=== PATIENT | female | born 1980 | race African-American/Black ===

== ENCOUNTER 2019-07-19 17:07 | Emergency (ER) | payer OTHER ==
[~2019-07-19] VITALS: Ht 175.3 cm; Wt 83.9 kg
[~2019-07-19 17:07] MED LIST: HYDROCODON-ACE1 EA15 ORAL; OMEPRAZOLE20 M2 ORAL
[2019-07-19 17:26] VITALS: BP 146/93
[2019-07-19] MEDS ORDERED: Ketorolac 30mg Inj IV ONE (18:00)
[2019-07-19] MEDS ORDERED: Clindamycin 600mg 50 ML IVPB ONE (18:00)
--- NOTE | 2019-07-19 18:00 | Emergency Room Report ---
History of Present Illness General Chief Complaint: Skin Rash/Abscess Source: Patient Present Illness HPI 38-year-old female presents to the emergency department complaining of 7 out of 10 severity localized pain, swelling, erythema and purulent discharge to the dorsal aspect of the right index finger x4 days. Patient reports symptoms are progressive and began as an insect bite which look like a small pimple. Trauma or fall. Patient denies history of immune compromise. She reports pain exacerbation upon flexion or full extension of the right index finger. Patient states that she is left-hand dominant. Pt. denies fevers, chills or swollen tender lymph nodes. Denies lesions/rashes elsewhere on the body. Denies new medications or body washes or creams. Denies swelling of the lips, tongue , throat or airway. Denies wheezing, or shortness of breath. Denies recent travel , recent illness or ill contacts. denies blisters, oral lesions, or sloughing of the skin. Pt. not UTD with tetanus. Allergies: Coded Allergies: No Known Allergies (Unverified , 03/21/15) Patient History Past Medical History: see triage record Pertinent Family History: none Last Menstrual Period: 07/17/19 Now: No Reviewed Nursing Documentation: PMH: Agreed; PSxH: Agreed Nursing Documentation-PMH Past Medical History: No Stated History Review of Systems All Other Systems: negative except mentioned in HPI Physical Exam Vital Signs Date Time Temp Pulse Resp B/P (MAP) Pulse Ox O2 Delivery O2 Flow Rate FiO2 07/19/19 17:11 98.1 80 14 146/93 (110) 95 Room Air Sp02 EP Interpretation: reviewed, normal General Appearance: no apparent distress, alert, GCS 15, non-toxic Head: normocephalic, atraumatic Eyes: bilateral eye normal inspection, bilateral eye PERRL ENT: hearing grossly normal, normal voice Neck: full range of motion Respiratory: lungs clear, normal breath sounds, speaking full sentences Cardiovascular #1: regular rate, rhythm, normal capillary refill Musculoskeletal: normal range of motion, gait/station normal, tender - Dorsal aspect of the right index finger with moderate swelling, erythema, warmth and purulent discharge noted., swelling - dorsum of the right index finger Neurologic: alert, motor strength/tone normal, oriented x3, sensory intact, responsive, speech normal Psychiatric: judgement/insight normal Skin: other - draining pustule with surrounding ST infectin of the dorsal aspect of the right index finger with moderate swelling, erythema, warmth and purulent discharge noted.. No blisters or vesicles. Lymphatic: no adenopathy Medical Decision Making PA Attestation Dr. Avila Is my supervising Physician whom patient management has been discussed with. Diagnostic Impression: Primary Impression: Cellulitis of finger of right hand ER Course 38-year-old female presents to the emergency department complaining of 7 out of 10 severity localized pain, swelling, erythema and purulent discharge to the dorsal aspect of the right index finger x4 days. Patient reports symptoms are progressive and began as an insect bite which look like a small pimple. Trauma or fall. Patient denies history of immune compromise. She reports pain exacerbation upon flexion or full extension of the right index finger. Patient states that she is left-hand dominant. Pt. denies fevers, chills or swollen tender lymph nodes. Denies lesions/rashes elsewhere on the body. Denies new medications or body washes or creams. Denies swelling of the lips, tongue , throat or airway. Denies wheezing, or shortness of breath. Denies recent travel , recent illness or ill contacts. denies blisters, oral lesions, or sloughing of the skin. Pt. not UTD with tetanus. Ddx considered but are not limited to cellulitis, Necrotizing fasciitis, allergic reaction, burn, dermatitis, fracture, d/L, gout, paronichia, eponichia, ingrown toe nail, Vital signs: are WNL, pt. is afebrile H&PE are most consistent with moderate soft tissue cellulitis of the proximal aspect of the right index finger on the dorsal side. Patient is able to flex and extend index finger on her own with some discomfort. She is nontoxic in appearance in no acute distress at this time. ORDERS: none required at this time, the diagnosis is clinical ED INTERVENTIONS: Clindamycin IV -Toradol IV -Right index finger splint applied by pulmonary function technologist. Pt. remains neurovascularly intact. Patient is given strict ED return precautions and told to have 48-hour wound follow-up to ensure improvement of symptoms. DISCHARGE: At this time pt. is stable for d/c to home. Will provide printed patient care instructions, and any necessary prescriptions. Care plan and follow up instructions have been discussed with the patient prior to discharge. Last Vital Signs Date Time Temp Pulse Resp B/P (MAP) Pulse Ox O2 Delivery O2 Flow Rate FiO2 07/19/19 17:26 98.1 84 14 146/93 95 Room Air Status: improved Disposition: HOME, SELF-CARE Condition: Stable Scripts Mupirocin* (MUPIROCIN*) 22 Gm Oint...g. 1 APPLIC TOPIC THREE TIMES A DAY, #22 GM Prov: Shante Britt 07/19/19 Ibuprofen* (MOTRIN*) 600 Mg Tablet 600 MG ORAL THREE TIMES A DAY, #30 TAB 0 Refills Prov: Shante Britt 07/19/19 Acetaminophen With Codeine (T#3) (TYLENOL #3 TAB*) Y Tab 1 TAB ORAL Q6H PRN for For Pain, #12 TAB Prov: Shante Britt 07/19/19 Clindamycin Hcl (CLINDAMYCIN HCL) 300 Mg Capsule 300 MG ORAL FOUR TIMES A DAY for 7 Days, #28 CAP Prov: Shante Britt 07/19/19 Patient Instructions: Cellulitis, [id number] Additional Instructions: Take medications as directed. Follow up with a Primary Care Provider in 48 HOURS, even if your symptoms have resolved. --Please review list of primary care clinics, if you do not already have a primary care provider Return sooner to ED if new symptoms occur, or current symptoms become worse. Do not drink alcohol, drive, or operate heavy machinery while taking Tylenol # 3 as this may cause drowsiness. - Please note that this Emergency Department Report was dictated using [employer] program director technology software, occasionally this can lead to erroneous entry secondary to interpretation by the dictation equipment. Shante Britt Jul 19, 2019 18:00
[2019-07-19] MEDS ORDERED: Tylenol #3 tab (300mg/30mg) ORAL ONE (18:15)
[2019-07-19 18:35] LABS: BASOPHILS % (AUTO) 0.6 % (0.0-2.0); EOSINOPHILS % (AUTO) 1.3 % (0.0-3.0); HEMOGLOBIN 13.1 G/DL (12.0-16.0); LYMPHOCYTES % (AUTO) 28.8 % (20.0-45.0); MEAN CORPUSCULAR VOLUME 80 FL (80-99); NEUTROPHILS % (AUTO) 62.2 % (45.0-75.0); PLATELET COUNT 281 K/UL (150-450); RED BLOOD COUNT 5.13 M/UL (4.20-5.40); RED CELL DISTRIBUTION WIDTH 10.5 % (11.6-14.8); WHITE BLOOD COUNT 10.3 K/UL (4.8-10.8)
[2019-07-19] MEDS ORDERED: Tetanus/Diptheria/Pertussis IM ONE (19:15)
[2019-07-19] MEDS ORDERED: MUPIROCIN22 GM TOPIC (19:30)
[2019-07-19] MEDS ORDERED: ACETAMINOPHEN-1 EAC1 ORAL (19:30)
[2019-07-19] MEDS ORDERED: IBUPROFEN600 MG ORAL (19:30)
[2019-07-19] MEDS ORDERED: CLINDAMYCIN HC300 MG ORAL (19:30)
[2019-07-19 20:40] VITALS: BP 146/93
== END 2019-07-19 20:40 | disposition home or self-care (01) ==
LOC: EMR 17:50
DX: L03.011 Cellulitis of right finger (principal); W57.XXXA Bitten or stung by nonvenomous insect and other nonvenomous arthropods, initial encounter; Y93.9 Activity, unspecified; Y92.9 Unspecified place or not applicable
CPT/HCPCS: 29130; 36415; 85025; 90471; 90715; 96365; 96375; J1885; Z7502; 99284; S0077

== ENCOUNTER 2019-10-01 10:24 | Emergency (ER) | payer OTHER ==
[~2019-10-01] VITALS: Ht 172.7 cm; Wt 83.9 kg
[~2019-10-01 10:24] MED LIST changes: +ACETAMINOPHEN-1 EAC1 ORAL; +CLINDAMYCIN HC300 MG ORAL; +IBUPROFEN600 MG ORAL; +MUPIROCIN22 GM TOPIC
--- NOTE | 2019-10-01 10:32 | NUR ---
ED Nurse Note: Pt ambulated to ED d/t abdominal pain on RT upper region; N/V x 3 days. Pt is AOx4 calm and cooperative; VSS, on RA. Placed on bed.
--- NOTE | 2019-10-01 10:35 | NUR ---
ED Nurse Note: Dr. Avila at bedside.
[2019-10-01 10:37] VITALS: BP 120/81
[2019-10-01] MEDS ORDERED: FAMOTIDINE20 MG ORAL (10:46)
[2019-10-01] MEDS ORDERED: IBUPROFEN600 MG ORAL (10:46)
--- NOTE | 2019-10-01 10:47 | Emergency Room Report ---
History of Present Illness General Chief Complaint: Abdominal Pain Source: Patient Present Illness HPI 38-year-old female history of gallstones presents with right upper quadrant pain that started last night, after a meal, no alleviating factors aggravating factors appear to be eating, severity was moderate, constant sharp lasting a few hours self resolving, with nausea no chest pain or shortness of breath patient presents for evaluation Allergies: Coded Allergies: No Known Allergies (Unverified , 03/21/15) Patient History Past Medical History: see triage record Last Menstrual Period: 09/17/2019 Reviewed Nursing Documentation: PMH: Agreed; PSxH: Agreed Nursing Documentation-PMH Past Medical History: No Stated History Review of Systems All Other Systems: negative except mentioned in HPI Physical Exam Vital Signs Date Time Temp Pulse Resp B/P (MAP) Pulse Ox O2 Delivery O2 Flow Rate FiO2 10/01/19 10:27 98.1 75 16 120/81 (94) 97 Room Air Sp02 EP Interpretation: reviewed, normal General Appearance: well appearing, no apparent distress, alert Head: normocephalic, atraumatic Eyes: bilateral eye PERRL, bilateral eye EOMI ENT: uvula midline, moist mucus membranes Neck: supple, thyroid normal, supple/symm/no masses Respiratory: lungs clear, no respiratory distress, no retraction, no accessory muscle use Cardiovascular #1: normal peripheral pulses, regular rate, rhythm, no edema, no gallop, no murmur Gastrointestinal: non tender, soft, no guarding, no rebound Musculoskeletal: normal inspection Neurologic: alert, oriented x3 Psychiatric: mood/affect normal Skin: no rash, warm/dry Medical Decision Making Diagnostic Impression: Primary Impression: Cholelithiasis Qualified Codes: K80.80 - Other cholelithiasis without obstruction ER Course 38-year-old female with known gallstones presents with right upper quadrant pain that has since resolved patient is without any pain differential diagnosis includes cholelithiasis cholecystitis choledocholithiasis During decision making was made with patient to pursue outpatient care patient reports that she has a appointment with her [place] doctor additionally I counseled patient to follow-up with her PCP and get a referral to surgery for possible elective surgery and removal of her gallbladder Disposition home with return precautions follow-up with PCP Last Vital Signs Date Time Temp Pulse Resp B/P (MAP) Pulse Ox O2 Delivery O2 Flow Rate FiO2 3/10/20 10:37 98.1 16 120/81 97 Room Air 10/01/19 10:37 75 Disposition: HOME, SELF-CARE Condition: Stable Scripts Famotidine* (Pepcid 20mg tablet*) 20 Mg Tablet 20 MG ORAL TWICE A DAY, #60 TAB 0 Refills Prov: Shane Avila MD 10/01/19 Ibuprofen* (MOTRIN*) 600 Mg Tablet 600 MG ORAL Q8H PRN for For Pain, #30 TAB 0 Refills Prov: Shane Avila MD 10/01/19 Referrals: [facility] Patient Instructions: Cholelithiasis, [id number] Additional Instructions: The patient was provided with discharge instructions, notified to follow-up with a primary care doctor and or specialist in the next 24-48 hours, and to return to the ED if they have worsening of their symptoms. Please note that this report is being documented using [employer] technology. This can lead to erroneous entry secondary to incorrect interpretation by the dictating instrument. Please follow-up with your [place] doctor for possible elective cholecystectomy for removal of your gallbladder Shane Avila MD Oct 01, 2019 10:47
[2019-10-01 10:52] VITALS: BP 120/81
--- NOTE | 2019-10-01 10:52 | NUR ---
ER DISCHARGE NOTE: Patient is cleared to be discharged per ERMD, pt is aox4, on room air, with stable vital signs. pt was given dc and prescription instructions, pt was able to verbalize understanding, pt id band removed. pt is able to ambulate with steady gait. pt took all belongings.
== END 2019-10-01 10:52 | disposition home or self-care (01) ==
LOC: EMR 10:50
DX: K80.80 Other cholelithiasis without obstruction (principal)
CPT/HCPCS: 81025; Z7502; 99282

== ENCOUNTER 2020-01-28 10:42 | Emergency (ER) | payer OTHER ==
[~2020-01-28] VITALS: Ht 172.7 cm; Wt 91.2 kg
[~2020-01-28 10:42] MED LIST changes: +FAMOTIDINE20 MG ORAL
[2020-01-28 10:48] VITALS: BP 112/74
--- NOTE | 2020-01-28 10:58 | NUR ---
ED Nurse Note: Pt from home walked in due to weight loss x 2 days. Denies N/V/D. No reports of coughing. 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 AAO x4, ambulatory with non labored breathing.
[2020-01-28] MEDS ORDERED: MELATONIN5 M2 SL (10:59)
[2020-01-28 11:05] VITALS: BP 123/70
--- NOTE | 2020-01-28 11:22 | Emergency Room Report ---
History of Present Illness General Chief Complaint: General Complaint Source: Patient Present Illness HPI Patient is a 39-year-old female denies any significant past medical history who presents here stating that she wanted to get her weight checked. Patient appears uncomfortable and upon further questioning she states she has been having issues sleeping. I asked her if she does any drugs and she admits to doing PCP last usage was last night. She denies any fever, chills, nausea, vomiting, chest pain, shortness of breath, abdominal pain or focal weakness. 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 - 01/16/20 COVID-19 Screening: Negative COVID-19 COVID-19 Testing Source: throat Patient History Last Menstrual Period: 01/06/20 Reviewed Nursing Documentation: PMH: Agreed; PSxH: Agreed Nursing Documentation-PMH Past Medical History: No Stated History Review of Systems All Other Systems: negative except mentioned in HPI Physical Exam Vital Signs Date Time Temp Pulse Resp B/P (MAP) Pulse Ox O2 Delivery O2 Flow Rate FiO2 01/28/20 10:48 97.7 83 14 112/74 99 Room Air Sp02 EP Interpretation: reviewed, normal General Appearance: no apparent distress, alert, GCS 15, non-toxic Head: normocephalic, atraumatic Eyes: bilateral eye normal inspection, bilateral eye PERRL ENT: hearing grossly normal, normal pharynx, no angioedema, normal voice Neck: full range of motion, supple/symm/no masses Respiratory: chest non-tender, lungs clear, normal breath sounds, speaking full sentences Cardiovascular #1: regular rate, rhythm, no edema Gastrointestinal: normal bowel sounds, non tender, soft, non-distended, no guarding, no rebound Rectal: deferred Genitourinary: normal inspection, no CVA tenderness Musculoskeletal: back normal, normal range of motion, no calf tenderness, gait/ station normal, non-tender Neurologic: alert, motor strength/tone normal, oriented x3, sensory intact, responsive, speech normal Psychiatric: no suicidal/homicidal ideation, anxious Skin: no rash Lymphatic: no adenopathy Medical Decision Making Diagnostic Impression: Primary Impression: Phencyclidine (PCP) use disorder, moderate Additional Impression: Insomnia ER Course Patient states that she has an appointment with her clinic on February 09. After discussing risks and benefits of further diagnostics, treatment plans, as well as indications for and risks of admission, the patient is agreeable to being discharged home. I have explained that their evaluation and treatment in the emergency department today is an important step towards them achieving better health but that their evaluation today is not intended to replace further evaluation and treatment by a physician in their local clinic. I have explained that while the current findings suggest no immediate life threatening emergency they will require further evaluation and treatment by a physician of their choice in their area. They understand that it will be necessary for them to review the final reports of their ED visit with their clinic physician. We have reviewed indications for return to the Emergency Department. I have explained that additional time may need to pass and/or additional testing as an outpatient may be necessary before a definitive diagnosis can be made. They tell me they are willing to follow up as instructed within the timeframe I recommend. They appear to understand what we discussed. Additionally they understand that if they are unable to be seen by an outpatient physician they are welcome, and in fact should, return to the Emergency Department for a repeat evaluation. The patient is stable at time of discharge. Last Vital Signs Date Time Temp Pulse Resp B/P (MAP) Pulse Ox O2 Delivery O2 Flow Rate FiO2 01/28/20 11:05 98.0 76 17 123/70 100 Room Air Disposition: HOME, SELF-CARE Condition: Stable Scripts Melatonin (MELATONIN) 5 Mg Tab.subl 5 MG SL BEDTIME PRN for Insomnia, #14 TAB Prov: Jennie Burns M.D. 01/28/20 Referrals: NON PHYSICIAN (PCP) [facility] Patient Instructions: Insomnia Additional Instructions: The patient was provided with discharge instructions, notified to follow-up with a primary care doctor and or specialist in the next 24-48 hours, and to return to the ED if they have worsening of their symptoms. Please note that this report is being documented using [employer] technology. This can lead to erroneous entry secondary to incorrect interpretation by the dictating instrument. Jennie Burns M.D. Jan 28, 2020 11:22
== END 2020-01-28 12:05 | disposition home or self-care (01) ==
LOC: EMR 11:04
DX: F16.90 Hallucinogen use, unspecified, uncomplicated (principal); G47.00 Insomnia, unspecified
CPT/HCPCS: 99281

== ENCOUNTER 2020-05-23 17:52 | Inpatient (IN) | payer OTHER ==
[~2020-05-23] VITALS: Ht 172.7 cm; Wt 84.8 kg
[~2020-05-23 17:52] MED LIST changes: +MELATONIN5 M2 SL
[2020-05-23] MEDS ORDERED: Ketorolac 30mg Inj IV ONE (18:15)
[2020-05-23 18:20] VITALS: BP 143/82
--- NOTE | 2020-05-23 18:20 | NUR ---
ED Nurse Note: Pt walked in from home c/o right sided abd pain x 2 hours. Pt denies n/v/d. Respirations even and unlabored on room air. Vitals stable as documented. A+Ox4, speaking in complete sentences.
[2020-05-23] MEDS ORDERED: Morphine Sulfate 4mg/ml Inj (IV USE ONLY) IVP ONE (18:30)
[2020-05-23 19:11] LABS: BILIRUBIN, URINE NEGATIVE (NEGATIVE); COLOR,URINE PALE YELLOW; GLUCOSE, URINE (UA) NEGATIVE (NEGATIVE); KETONES,URINE NEGATIVE (NEGATIVE); NITRITE,URINE NEGATIVE (NEGATIVE); PH,URINE 5 (4.5-8.0); PROTEIN,URINE NEGATIVE (NEGATIVE); UROBILINOGEN,URINE NORMAL MG/DL (0.0-1.0)
--- NOTE | 2020-05-23 19:21 | NUR ---
HAND-OFF: Report given to FAHAD Rider. Pt in stable condition; plan of care endorsed.
--- NOTE | 2020-05-23 19:35 | NUR ---
ED Nurse Note: US at bedside
[2020-05-23 19:38] LABS: ANION GAP 9 mmol/L (5-15); BLOOD UREA NITROGEN 8 mg/dL (7-18); CALCIUM 8.5 MG/DL (8.5-10.1); CARBON DIOXIDE 26 MMOL/L (21-32); CHLORIDE 105 MMOL/L (98-107); CREATININE 0.9 MG/DL (0.55-1.30); POTASSIUM 3.6 MMOL/L (3.5-5.1); SODIUM 140 MMOL/L (136-145)
[2020-05-23 19:43] LABS: APPEARANCE,URINE SLIGHTLY CLOUDY; LEUKOCYTE ESTERASE ,URINE 2+ (NEGATIVE)
[2020-05-23 19:43] LABS: ALANINE AMINOTRANSFERASE 14 U/L (12-78); ALBUMIN 3.7 G/DL (3.4-5.0); ALBUMIN/GLOBULIN RATIO 1.1 (1.0-2.7); ALKALINE PHOSPHATASE 84 U/L (46-116); ASPARTATE AMINO TRANSFERASE 13 U/L (15-37); BILIRUBIN,TOTAL 0.2 MG/DL (0.2-1.0)
[2020-05-23 19:44] LABS: BASOPHILS % (AUTO) 1.3 % (0.0-2.0); HEMOGLOBIN 13.2 G/DL (12.0-16.0); LYMPHOCYTES % (AUTO) 30.7 % (20.0-45.0); MEAN CORPUSCULAR VOLUME 77 FL (80-99); MONOCYTES % (AUTO) 6.1 % (1.0-10.0); NEUTROPHILS % (AUTO) 59.8 % (45.0-75.0); PLATELET COUNT 233 K/UL (150-450); RED CELL DISTRIBUTION WIDTH 13.6 % (11.6-14.8); WHITE BLOOD COUNT 8.7 K/UL (4.8-10.8)
--- NOTE | 2020-05-23 20:24 | Emergency Room Report ---
History of Present Illness General Chief Complaint: Abdominal Pain Source: Patient Present Illness HPI 39-year-old female with known history of gallstones here with right upper quadrant abdominal pain. Patient says that his pain started approximately 4 hours prior to come to the emergency department. Is sharp in nature located in the right lower quadrant, does not otherwise radiate. She does not take anyth ing for the pain since it started. Patient says that she suffers from biliary colic frequently but "this pain is much worse." 10 out of 10 pain. Denies fevers, chills, chest pain, palpitations, shortness of breath, other abdominal pain, nausea, vomiting, diarrhea, dysuria. 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 COVID-19 Screening: Negative COVID-19 COVID-19 Testing Source: OP Patient History Last Menstrual Period: 04/07/20 Now: No Nursing Documentation-[facility] Past Medical History: No Stated History Review of Systems All Other Systems: negative except mentioned in HPI Physical Exam Vital Signs Date Time Temp Pulse Resp B/P (MAP) Pulse Ox O2 Delivery O2 Flow Rate FiO2 05/23/20 17:57 98.4 65 16 141/87 (105) 100 Room Air Sp02 EP Interpretation: reviewed, normal General Appearance: no apparent distress, alert, non-toxic Head: normocephalic, atraumatic Eyes: bilateral eye normal inspection, bilateral eye PERRL ENT: hearing grossly normal, normal pharynx, no angioedema, normal voice Neck: full range of motion, supple/symm/no masses Respiratory: chest non-tender, lungs clear, normal breath sounds, speaking full sentences Cardiovascular #1: regular rate, rhythm, no edema Cardiovascular #2: 2+ carotid (R), 2+ carotid (L), 2+ radial (R), 2+ radial (L), 2+ dorsalis pedis (R), 2+ dorsalis pedis (L) Gastrointestinal: normal bowel sounds, soft, non-distended, no guarding, no rebound, other - RUQ pain on palpation. Positive Light's Rectal: deferred Genitourinary: normal inspection, no CVA tenderness Musculoskeletal: back normal, normal range of motion, gait/station normal, non- tender Neurologic: alert, motor strength/tone normal, oriented x3, sensory intact, responsive, speech normal Psychiatric: judgement/insight normal, memory normal, mood/affect normal, no suicidal/homicidal ideation Lymphatic: no adenopathy Medical Decision Making Diagnostic Impression: Primary Impression: Cholecystitis Additional Impressions: Biliary colic Cholelithiasis ER Course Laboratory Tests Test 05/23/20 18:40 05/23/20 19:20 Urine Color Pale yellow Urine Appearance Slightly cloudy Urine pH 5 (4.5-8.0) Urine Specific [place] 1.020 (1.005-1.035) Urine Protein Negative (NEGATIVE) Urine Glucose (UA) Negative (NEGATIVE) Urine Ketones Negative (NEGATIVE) Urine Blood Negative (NEGATIVE) Urine Nitrite Negative (NEGATIVE) Urine Bilirubin Negative (NEGATIVE) Urine Urobilinogen Normal MG/DL (0.0-1.0) Urine Leukocyte Esterase 2+ (NEGATIVE) H Urine RBC 0-2 /HPF (0 - 2) Urine WBC 5-10 /HPF (0 - 2) H Urine Squamous Epithelial Cells Moderate /LPF (NONE/OCC) H Urine Bacteria Few /HPF (NONE) White Blood Count 8.7 K/UL (4.8-10.8) Red Blood Count 5.30 M/UL (4.20-5.40) Hemoglobin 13.2 G/DL (12.0-16.0) Hematocrit 41.0 % (37.0-47.0) Mean Corpuscular Volume 77 FL (80-99) L Mean Corpuscular Hemoglobin 25.0 PG (27.0-31.0) L Mean Corpuscular Hemoglobin Concent 32.3 G/DL (32.0-36.0) Red Cell Distribution Width 13.6 % (11.6-14.8) Platelet Count 233 K/UL (150-450) Mean Platelet Volume 6.1 FL (6.5-10.1) L Neutrophils (%) (Auto) 59.8 % (45.0-75.0) Lymphocytes (%) (Auto) 30.7 % (20.0-45.0) Monocytes (%) (Auto) 6.1 % (1.0-10.0) Eosinophils (%) (Auto) 2.0 % (0.0-3.0) Basophils (%) (Auto) 1.3 % (0.0-2.0) Sodium Level 140 MMOL/L (136-145) Potassium Level 3.6 MMOL/L (3.5-5.1) Chloride Level 105 MMOL/L (98-107) Carbon Dioxide Level 26 MMOL/L (21-32) Anion Gap 9 mmol/L (5-15) Blood Urea Nitrogen 8 mg/dL (7-18) Creatinine 0.9 MG/DL (0.55-1.30) Estimated Glomerular Filtration Rate > 60 mL/min (>60) Glucose Level 99 MG/DL (74-106) Calcium Level 8.5 MG/DL (8.5-10.1) Total Bilirubin 0.2 MG/DL (0.2-1.0) Aspartate Amino Transferase (AST) 13 U/L (15-37) L Alanine Aminotransferase (ALT) 14 U/L (12-78) Alkaline Phosphatase 84 U/L (46-116) Total Protein 7.0 G/DL (6.4-8.2) Albumin 3.7 G/DL (3.4-5.0) Globulin 3.3 g/dL Albumin/Globulin Ratio 1.1 (1.0-2.7) Lipase 120 U/L (73-393) Right upper quadrant ultrasound: is technician reports multiple gallstones within the gallbladder including one at the gallbladder neck. Very mild amount of pericholecystic fluid, no gallbladder wall thickening 39-year-old female with known gallstones here with right upper quadrant abdominal pain. Patient was hemodynamically stable and neurovascularly intact in the emergency department but appeared to be in acute distress secondary to severe right upper quadrant abdominal pain. She was given multiple dose of pain medication in the emergency department with eventual resolution of her pain. CBC and CMP were largely unremarkable. Patient had no evidence of transaminitis. A right upper quadrant ultrasound was performed and the all terrain vehicle technician informed me that the patient has multiple gallstones including one of the gallbladder neck with a small amount of pericholecystic fluid but no evidence of gallbladder wall thickening. Patient says "someone told me I have needed to get my gallbladder out, but I have not had time." Patient has had normal vital signs and has been stable in the emergency department. Admitted to [facility]. Last Vital Signs Date Time Temp Pulse Resp B/P (MAP) Pulse Ox O2 Delivery O2 Flow Rate FiO2 05/23/20 18:20 72 18 Room Air 05/23/20 18:20 98.2 143/82 99 Scripts No Active Prescriptions or Reported Meds Referrals: NON PHYSICIAN (PCP) Carter Purcell M.D. May 23, 2020 20:24
--- NOTE | 2020-05-23 20:25 | Diagnostic Imaging Report ---
ADDENDUM - Added by Ganesh Bojorquez MD on 05/23/2020 8:42 PM (-07:00) This is a correction to the report above. Additional images were received. This study should have been labeled as ultrasound of the abdomen complete. Moreover, the common bile duct was visualized and was normal in caliber. Moreover, the left kidney and the spleen were unremarkable. EXAM: US Abdomen Limited, Right Upper Quadrant CLINICAL HISTORY: Right upper quadrant abdominal pain. Abnormal LFTs. TECHNIQUE: Real-time ultrasound of the right upper quadrant with image documentation. COMPARISON: 03/21/2015. FINDINGS: Liver: No focal hepatic abnormality noted. Gallbladder: There is cholelithiasis. 1 of the gallstones is in the region of the neck of the gallbladder. The gallbladder is otherwise unremarkable. No gallbladder wall thickening. Common bile duct: The common bile duct was not visualized due to bowel gas. Pancreas: Pancreas is grossly unremarkable. Right kidney: Right kidney measures 11.5 cm in length without hydronephrosis. No stones. Aorta: Abdominal aorta is normal in caliber. IMPRESSION: 1. Cholelithiasis. There is a gallstone in the region of the neck of the gallbladder. 2. The gallbladder is otherwise unremarkable. 3. The common bile duct was not visualized. 4. If there is concern for etiology such as choledocholithiasis, MRCP study should be considered for follow-up. 5. No hydronephrosis of the right kidney. <MYCVCSECTION> Communications: 05/23/20 20:44 Call From [facility] on 05/23 20:39 (-07:00) 05/23/20 20:56 Verify Receipt Verified receipt with EMIL BAER in the ER for HEDY PENN on 05/23 20:56 (-07:00)
[2020-05-23] MEDS ORDERED: metroNIDAZOLE 500mg tab ORAL ONE (20:30)
[2020-05-23] MEDS ORDERED: cefTRIAXone 1 GM in NS 55 ML IVPB ONE (20:30)
[2020-05-23] MEDS: Morphine Sulfate 4mg/ml Inj (IV USE ONLY) IVP ONE ×2 (20:32→20:37)
[2020-05-23] MEDS ORDERED: Tubing IV Secondary IV ONE (21:00)
[2020-05-23] MEDS ORDERED: D5 1/2NS 1000ml IV ONE (21:00)
[2020-05-23] MEDS ORDERED: Morphine Sulfate 4mg/ml Inj (IV USE ONLY) IVP PRN (21:15)
--- NOTE | 2020-05-23 21:35 | NUR ---
TRANSFER TO FLOOR: Patient transferred to as ordered, per Dr Moreno. Report given to FAHAD Stern. Belongings and medications given to . Family and or S/O informed of transfer.
[2020-05-23 22:00] VITALS: BP 124/77
--- NOTE | 2020-05-23 22:00 | NUR ---
NURSE NOTES: Patient admitted from ED via gurney. pt is aox4, ambulatory steady gait. Denies pain at this time. R wrist IV intact. Belongings verified at bedside. Patient denied any medical history or home medications. Will contact MD for admission orders.
[2020-05-23] MEDS: D5 1/2NS 1,000 ML IV SCH (22:09)
[2020-05-23] MEDS ORDERED: Morphine Sulfate 2mg/ml Inj(IV/IM USE ONLY) IVP PRN (22:15)
[2020-05-24] VITALS: BP 127/77
[2020-05-24 04:00] VITALS: BP 105/63
--- NOTE | 2020-05-24 06:38 | NUR ---
NURSE NOTES: Patient stable during the night; no complaints of pain.
[2020-05-24 06:53] LABS: BASOPHILS % (AUTO) 0.9 % (0.0-2.0); EOSINOPHILS % (AUTO) 2.3 % (0.0-3.0); HEMATOCRIT 39.7 % (37.0-47.0); HEMOGLOBIN 12.9 G/DL (12.0-16.0); LYMPHOCYTES % (AUTO) 41.4 % (20.0-45.0); MEAN CORPUSCULAR VOLUME 79 FL (80-99); MONOCYTES % (AUTO) 5.7 % (1.0-10.0); NEUTROPHILS % (AUTO) 49.7 % (45.0-75.0); PLATELET COUNT 240 K/UL (150-450); RED BLOOD COUNT 5.03 M/UL (4.20-5.40); RED CELL DISTRIBUTION WIDTH 13.4 % (11.6-14.8); WHITE BLOOD COUNT 7.4 K/UL (4.8-10.8)
[2020-05-24 07:17] LABS: ANION GAP 10 mmol/L (5-15); BLOOD UREA NITROGEN 5 mg/dL (7-18); CALCIUM 8.3 MG/DL (8.5-10.1); CARBON DIOXIDE 26 MMOL/L (21-32); CHLORIDE 106 MMOL/L (98-107); POTASSIUM 3.5 MMOL/L (3.5-5.1); SODIUM 142 MMOL/L (136-145)
--- NOTE | 2020-05-24 07:19 | NUR ---
NURSE HAND-OFF: Important Events on Shift:[new admit; IVF started; no pain] Patient Status: [stable] Diet: [NPO] Pending Orders: [to be seen by consultants] Pending Results/Labs:[AM labs] Pending MD notification:[] Latest Vital Signs: Temperature 98.2 , Pulse 52 , B/P 105 /63 , Respiratory Rate 18 , O2 SAT 97 , Room Air, O2 Flow Rate . Vital Sign Comment: [] Latest Mendiola Fall Score: 35 Fall Risk: Medium Risk Safety Measures: Call light Within Reach, Bed Alarm , Side Rails Side Rails x2, Bed position Low and Locked. Fall Precautions: Patient Fall Education Report given to [Cristin Ford RN].
[2020-05-24 08:00] VITALS: BP 121/72
--- NOTE | 2020-05-24 08:00 | NUR ---
NURSE NOTES: received patient in bed, asleep, in room air with no S/S of discomfort. Right wrst IV access in place, receives IVF, no leakage or infiltration noted. Bed locked at the lowest position possible, call light within easy reach, side rails upx2. Will continue to monitor patient and follow up with the plan of care.
--- NOTE | 2020-05-24 08:01 | General Progress Note ---
Subjective ROS Limited/Unobtainable: Yes Allergies: Coded Allergies: No Known Allergies (Unverified , 03/21/15) Objective Last 24 Hour Vital Signs Date Time Temp Pulse Resp B/P (MAP) Pulse Ox O2 Delivery O2 Flow Rate FiO2 05/24/20 04:00 98.2 52 18 105/63 (77) 97 05/24/20 00:00 97.9 57 18 127/77 (94) 97 05/23/20 22:00 97.9 60 18 124/77 (93) 97 05/23/20 21:53 Room Air 05/23/20 21:35 98.2 77 18 132/78 99 Room Air 05/23/20 18:20 72 18 Room Air 05/23/20 18:20 98.2 72 18 143/82 99 Room Air 05/23/20 17:57 98.4 65 16 141/87 (105) 100 Room Air Intake and Output 05/23/20 05/24/20 19:00 07:00 Intake Total 480 ml Balance 480 ml Intake IV Total 480 ml # Voids 1 1 Laboratory Tests 05/23/20 18:40: Urine Color Pale yellow, Urine Appearance Slightly cloudy, Urine pH 5, Urine Specific [place] 1.020, Urine Protein Negative, Urine Glucose (UA) Negative, Urine Ketones Negative, Urine Blood Negative, Urine Nitrite Negative, Urine Bilirubin Negative, Urine Urobilinogen Normal, Urine Leukocyte Esterase 2+H, Urine RBC 0-2, Urine WBC 5-10H, Urine Squamous Epithelial Cells ModerateH, Urine Bacteria Few 05/23/20 19:20: White Blood Count 8.7, Red Blood Count 5.30, Hemoglobin 13.2, Hematocrit 41.0, Mean Corpuscular Volume 77L, Mean Corpuscular Hemoglobin 25.0L, Mean Corpuscular Hemoglobin Concent 32.3, Red Cell Distribution Width 13.6, Platelet Count 233, Mean Platelet Volume 6.1L, Neutrophils (%) (Auto) 59.8, Lymphocytes (%) (Auto) 30.7, Monocytes (%) (Auto) 6.1, Eosinophils (%) (Auto) 2.0, Basophils (%) (Auto) 1.3, Sodium Level 140, Potassium Level 3.6, Chloride Level 105, Carbon Dioxide Level 26, Anion Gap 9, Blood Urea Nitrogen 8, Creatinine 0.9, Estimat Glomerular Filtration Rate > 60, Glucose Level 99, Calcium Level 8.5, Total Bilirubin 0.2, Aspartate Amino Transf (AST/SGOT) 13L, Alanine Aminotransferase (ALT/SGPT) 14, Alkaline Phosphatase 84, Total Protein 7.0, Albumin 3.7, Globulin 3.3, Album in/Globulin Ratio 1.1, Lipase 120 05/24/20 05:35: White Blood Count 7.4, Red Blood Count 5.03, Hemoglobin 12.9, Hematocrit 39.7, Mean Corpuscular Volume 79L, Mean Corpuscular Hemoglobin 25.6L, Mean Corpuscular Hemoglobin Concent 32.5, Red Cell Distribution Width 13.4, Platelet Count 240, Mean Platelet Volume 6.1L, Neutrophils (%) (Auto) 49.7, Lymphocytes (%) (Auto) 41.4, Monocytes (%) (Auto) 5.7, Eosinophils (%) (Auto) 2.3, Basophils (%) (Auto) 0.9, Sodium Level 142, Potassium Level 3.5, Chloride Level 106, Carbon Dioxide Level 26, Anion Gap 10, Blood Urea Nitrogen 5L, Creatinine 1.0, Estimat Glomerular Filtration Rate > 60, Glucose Level 91, Calcium Level 8.3L Height (Feet): 5 Height (Inches): 8.00 Weight (Pounds): 187 General Appearance: alert EENT: normal ENT inspection Neck: supple Cardiovascular: normal rate Respiratory/Chest: lungs clear Abdomen: hypoactive bowel sounds, tender Extremities: non-tender Assessment/Plan Problem List: (1) Cholelithiasis ICD Codes: K80.20 - Calculus of gallbladder without cholecystitis without obstruction SNOMED: 751824214 Assessment/Plan: no elevated LFTS no need for ERCP at this time fu surg recs advanced iet Drug screen Bridger Flores MD May 24, 2020 08:01
[2020-05-24] MEDS: Heparin 5000 units/ml inj SUBQ SCH ×2 (08:29→20:49)
--- NOTE | 2020-05-24 09:45 | History and Physical Report ---
DATE OF ADMISSION: 05/23/2020 TIME SEEN: 9 a.m. CONSULTANTS: 1. Bridger Flores MD. 2. Brenden Arenas MD 3. Marlo Aguilera MD. CHIEF COMPLAINT: Abdominal pain, cholecystitis. BRIEF HISTORY: This is a 39-year-old female, who lives at home, presents with two days increased abdominal pain. No nausea, vomiting, came to [facility], diagnosed with cholecystitis, admitted to medical floor. Currently, calm in bed, eating, no complaint. REVIEW OF SYSTEMS: No chest pain. No shortness of breath. No nausea, vomiting, or diarrhea. PAST MEDICAL HISTORY: Nothing. PAST SURGICAL HISTORY: Nothing. MEDICATIONS: Include heparin, Zofran, morphine, metronidazole, ceftriaxone, ketorolac. ALLERGIES: Denies. SOCIAL HISTORY: Positive smoke. Positive alcohol. No intravenous drug abuse. FAMILY HISTORY: Noncontributory. PHYSICAL EXAMINATION: GENERAL: Calm in bed, oriented x3, no acute distress. VITAL SIGNS: Temperature is 98 degrees, pulse 52, respiratory rate 18, blood pressure 105/63. CARDIOVASCULAR: No murmur. LUNGS: Distant and clear. ABDOMEN: Bowel sounds positive. Nontender. Nondistended. EXTREMITIES: No cyanosis or edema. NEUROLOGIC: The patient moves all extremities, slightly weak. LABORATORY AND DIAGNOSTIC DATA: Labs at this time show CBC is normal. BMP shows BUN 5, calcium 8.3. AST 13. Urinalysis show 2+ leukocyte esterase. ASSESSMENT: 1. Cholecystitis. 2. Abdominal pain. 3. UTI. PLAN: 1. Antibiotics per Infectious Diseases. 2. Pain control. 3. Dietary followup. 4. CBC and BMP in the morning. 5. Surgery followup as well. Jose Moreno D.O. DR: Jeimy JOB#: [id number] CC:
[2020-05-24] MEDS ORDERED: cefTRIAXone 1 GM in D5W 55 ML IVPB SCH (11:00)
--- NOTE | 2020-05-24 11:19 | Consultation ---
History of Present Illness General Date patient seen: May 24, 2020 Reason for Hospitalization: Abdominal Pain Present Illness HPI This is a 39-year-old female with known history of gallstones who presents to [facility] with right upper quadrant abdominal pain. Patient says that his pain sta rted approximately 4 hours prior to come to the emergency department. Is sharp in nature located in the right lower quadrant, does not otherwise radiate. She does not take anything for the pain since it started. Patient says that she suffers from biliary colic frequently but "this pain is much worse." 10 out of 10 pain. Denies fevers, chills, chest pain, palpitations, shortness of breath, other abdominal pain, nausea, vomiting, diarrhea, dysuria. Surgery called to evaluate and assist with care and management. no n/v/f/c. pain improved since admission Allergies: Coded Allergies: No Known Allergies (Unverified , 03/21/15) COVID-19 Screening Contact w/high risk pt: No Recent Travel to affected area: No Experienced COVID-19 symptoms?: No Medication History No Active Prescriptions or Reported Meds Patient History History Provided By: Patient, Medical Record, PMD Healthcare decision maker Resuscitation status Advanced Directive on File Past Medical/Surgical History Past Medical/Surgical History: (1) Thrombocytopenia (2) Anemia, chronic disease (3) Insomnia (4) Phencyclidine (PCP) use disorder, moderate (5) Cholelithiasis (6) Biliary colic (7) Cholecystitis Review of Systems Review of Symptoms General ROS: no weight loss or fever Psychological ROS: no depression or mood changes, no memory loss Ophthalmic ROS: no visual changes or eye irritation ENT ROS: no nasal congestion, hearing loss, dizziness Allergy and Immunology ROS: no allergic symptoms or urticaria Hematological and Lymphatic ROS: no swollen glands, unusual bleeding or bruising Endocrine ROS: no polyuria, polydipsia, weight changes, temperature intolerance Respiratory ROS: no cough, shortness of breath, or wheezing Cardiovascular ROS: no chest pain or dyspnea on exertion Gastrointestinal ROS: denies abdominal pain, bright red blood in stool. Musculoskeletal ROS: no myalgias or arthralgias Neurological ROS: no TIA or stroke symptoms Dermatological ROS: no new or changing skin lesions, rashes or pruritis Physical Exam Physical Exam General appearance: alert, cooperative, no distress, appears stated age Head: Normocephalic, without obvious abnormality, atraumatic Eyes: conjunctivae/corneas clear. PERRL, EOM's intact. Fundi benign Throat: Lips, mucosa, and tongue normal. Teeth and gums normal Neck: supple, symmetrical, trachea midline, no adenopathy, thyroid: not enlarged, symmetric, no tenderness/mass/nodules, no carotid bruit and no JVD Lungs: clear to auscultation bilaterally Heart: regular rate and rhythm, S1, S2 normal, no murmur, click, rub or gallop Abdomen: soft, non-tender. Bowel sounds normal. No masses, no organomegaly Extremities: extremities normal, atraumatic, no cyanosis or edema Pulses: 2+ and symmetric Skin: Skin color, texture, turgor normal. No rashes or lesions Neurologic: Grossly normal Last 24 Hour Vital Signs Date Time Temp Pulse Resp B/P (MAP) Pulse Ox O2 Delivery O2 Flow Rate FiO2 05/24/20 08:00 97.8 61 18 121/72 (88) 97 05/24/20 04:00 98.2 52 18 105/63 (77) 97 05/24/20 00:00 97.9 57 18 127/77 (94) 97 05/23/20 22:00 97.9 60 18 124/77 (93) 97 05/23/20 21:53 Room Air 05/23/20 21:35 98.2 77 18 132/78 99 Room Air 05/23/20 18:20 72 18 Room Air 05/23/20 18:20 98.2 72 18 143/82 99 Room Air 05/23/20 17:57 98.4 65 16 141/87 (105) 100 Room Air Intake and Output 05/23/20 05/24/20 19:00 07:00 Intake Total 480 ml Balance 480 ml Intake IV Total 480 ml # Voids 1 1 Laboratory Tests Test 05/23/20 18:40 05/23/20 19:20 05/24/20 05:35 Urine Color Pale yellow Urine Appearance Slightly cloudy Urine pH 5 (4.5-8.0) Urine Specific [place] 1.020 (1.005-1.035) Urine Protein Negative (NEGATIVE) Urine Glucose (UA) Negative (NEGATIVE) Urine Ketones Negative (NEGATIVE) Urine Blood Negative (NEGATIVE) Urine Nitrite Negative (NEGATIVE) Urine Bilirubin Negative (NEGATIVE) Urine Urobilinogen Normal MG/DL (0.0-1.0) Urine Leukocyte Esterase 2+ (NEGATIVE) H Urine RBC 0-2 /HPF (0 - 2) Urine WBC 5-10 /HPF (0 - 2) H Urine Squamous Epithelial Cells Moderate /LPF (NONE/OCC) H Urine Bacteria Few /HPF (NONE) White Blood Count 8.7 K/UL (4.8-10.8) 7.4 K/UL (4.8-10.8) Red Blood Count 5.30 M/UL (4.20-5.40) 5.03 M/UL (4.20-5.40) Hemoglobin 13.2 G/DL (12.0-16.0) 12.9 G/DL (12.0-16.0) Hematocrit 41.0 % (37.0-47.0) 39.7 % (37.0-47.0) Mean Corpuscular Volume 77 FL (80-99) L 79 FL (80-99) L Mean Corpuscular Hemoglobin 25.0 PG (27.0-31.0) L 25.6 PG (27.0-31.0) L Mean Corpuscular Hemoglobin Concent 32.3 G/DL (32.0-36.0) 32.5 G/DL (32.0-36.0) Red Cell Distribution Width 13.6 % (11.6-14.8) 13.4 % (11.6-14.8) Platelet Count 233 K/UL (150-450) 240 K/UL (150-450) Mean Platelet Volume 6.1 FL (6.5-10.1) L 6.1 FL (6.5-10.1) L Neutrophils (%) (Auto) 59.8 % (45.0-75.0) 49.7 % (45.0-75.0) Lymphocytes (%) (Auto) 30.7 % (20.0-45.0) 41.4 % (20.0-45.0) Monocytes (%) (Auto) 6.1 % (1.0-10.0) 5.7 % (1.0-10.0) Eosinophils (%) (Auto) 2.0 % (0.0-3.0) 2.3 % (0.0-3.0) Basophils (%) (Auto) 1.3 % (0.0-2.0) 0.9 % (0.0-2.0) Sodium Level 140 MMOL/L (136-145) 142 MMOL/L (136-145) Potassium Level 3.6 MMOL/L (3.5-5.1) 3.5 MMOL/L (3.5-5.1) Chloride Level 105 MMOL/L (98-107) 106 MMOL/L (98-107) Carbon Dioxide Level 26 MMOL/L (21-32) 26 MMOL/L (21-32) Anion Gap 9 mmol/L (5-15) 10 mmol/L (5-15) Blood Urea Nitrogen 8 mg/dL (7-18) 5 mg/dL (7-18) L Creatinine 0.9 MG/DL (0.55-1.30) 1.0 MG/DL (0.55-1.30) Estimat Glomerular Filtration Rate > 60 mL/min (>60) > 60 mL/min (>60) Glucose Level 99 MG/DL (74-106) 91 MG/DL (74-106) Calcium Level 8.5 MG/DL (8.5-10.1) 8.3 MG/DL (8.5-10.1) L Total Bilirubin 0.2 MG/DL (0.2-1.0) Aspartate Amino Transf (AST/SGOT) 13 U/L (15-37) L Alanine Aminotransferase (ALT/SGPT) 14 U/L (12-78) Alkaline Phosphatase 84 U/L (46-116) Total Protein 7.0 G/DL (6.4-8.2) Albumin 3.7 G/DL (3.4-5.0) Globulin 3.3 g/dL Albumin/Globulin Ratio 1.1 (1.0-2.7) Lipase 120 U/L (73-393) Height (Feet): 5 Height (Inches): 8.00 Weight (Pounds): 187 Medications Current Medications Medications (Trade) Dose Ordered Sig/Bipin Route PRN Reason Start Time Stop Time Status Last Admin Dose Admin Ceftriaxone Sodium 1 gm/ Dextrose 55 ml @ 110 mls/hr Q24H IVPB 05/24/20 11:00 05/31/20 10:59 05/24/20 10:29 Dextrose/Sodium Chloride 1,000 ml @ 60 mls/hr [id number] IV 05/23/20 22:15 06/22/20 22:14 05/23/20 22:09 Heparin Sodium (Porcine) (Heparin 5000 units/ml) 5,000 units EVERY 12 HOURS SUBQ 05/24/20 09:00 07/08/20 08:59 05/24/20 08:29 Metronidazole 100 ml @ 100 mls/hr Q8H IVPB 05/24/20 12:00 05/31/20 11:59 Morphine Sulfate (Morphine Sulfate) 2 mg Q4H PRN IVP For Pain 05/23/20 22:15 05/30/20 22:14 Morphine Sulfate (Morphine Sulfate) 4 mg PRN PRN IVP Moderate Pain (Pain Scale 4-6) 05/23/20 21:15 Ondansetron HCl (Zofran) 4 mg Q4H PRN IVP Nausea & Vomiting 05/23/20 22:15 06/22/20 22:14 Assessment/Plan Problem List: (1) Cholelithiasis ICD Codes: K80.20 - Calculus of gallbladder without cholecystitis without obstruction SNOMED: 178484252 (2) Biliary colic Assessment & Plan: 39 year old female with known history of cholelithiasis and biliary colic presents with abd pain RUQ. since admission pain improved no n/v/f/c labs normal US noted cholelithiasis but no gb thickening or pericholecystic fluid on exam abd soft nt/nd, bs+ likely episode of biliary colic discussed with patient at bedside. currently does not have pcp. recommend establish pcp with insurance. surgical outpatient referral in her network and recommend elective cho lecystectomy. trial oral diet d/c planning thank you ICD Codes: K80.50 - Calculus of bile duct w/o cholangitis or cholecyst w/o obst SNOMED: 46200785 (3) Cholecystitis Assessment & Plan: CLINICAL HISTORY: Right upper quadrant abdominal pain. Abnormal LFTs. TECHNIQUE: Real-time ultrasound of the right upper quadrant with image documentation. COMPARISON: 03/21/2015. FINDINGS: Liver: No focal hepatic abnormality noted. Gallbladder: There is cholelithiasis. 1 of the gallstones is in the region of the neck of the gallbladder. The gallbladder is otherwise unremarkable. No gallbladder wall thickening. Common bile duct: The common bile duct was not visualized due to bowel gas. Pancreas: Pancreas is grossly unremarkable. Right kidney: Right kidney measures 11.5 cm in length without hydronephrosis. No stones. Aorta: Abdominal aorta is normal in caliber. IMPRESSION: 1. Cholelithiasis. There is a gallstone in the region of the neck of the gallbladder. 2. The gallbladder is otherwise unremarkable. 3. The common bile duct was not visualized. 4. If there is concern for etiology such as choledocholithiasis, MRCP study should be considered for follow-up. 5. No hydronephrosis of the right kidney. ADDENDUM - Added by Ganesh Bojorquez MD on 05/23/2020 8:42 PM (-07:00) This is a correction to the report above. Additional images were received. This study should have been labeled as ultrasound of the abdomen complete. Moreover, the common bile duct was visualized and was normal in caliber. Moreover, the left kidney and the spleen were unremarkable. ICD Codes: K81.9 - Cholecystitis, unspecified SNOMED: 51218644 (4) Insomnia ICD Codes: G47.00 - Insomnia, unspecified SNOMED: 295863284 (5) Thrombocytopenia ICD Codes: D69.6 - Thrombocytopenia, unspecified SNOMED: 934838223 (6) Anemia, chronic disease ICD Codes: D63.8 - Anemia in other chronic diseases classified elsewhere SNOMED: 429836305 (7) Phencyclidine (PCP) use disorder, moderate ICD Codes: F16.20 - Hallucinogen dependence, uncomplicated SNOMED: 7137002 Marlo Aguilera May 24, 2020 11:19
[2020-05-24 12:00] VITALS: BP 99/60
[2020-05-24] MEDS: D5 1/2NS 1,000 ML IV SCH (13:07)
[2020-05-24 16:00] VITALS: BP 94/63
--- NOTE | 2020-05-24 17:02 | NUR ---
CHARGE NURSE NOTE: urine drug screen reported to - opiates and PCP+
--- NOTE | 2020-05-24 19:25 | NUR ---
NURSE NOTES: Received pt. from FAHAD Amaral. Pt. is alseep in bed, responsive to stimuli. Breathing even and unlabored. With bed in it's lowest position, with alarm on and locked. Will continue with plan of care.
--- NOTE | 2020-05-24 19:53 | NUR ---
NURSE HAND-OFF: Important Events on Shift:[n/a] Patient Status: [stable] Diet: [low residue, low fiber] Pending Orders: [] Pending Results/Labs:[] Pending MD notification:[] Latest Vital Signs: Temperature 97.9 , Pulse 60 , B/P 94 /63 , Respiratory Rate 18 , O2 SAT 100 , Room Air, O2 Flow Rate . Vital Sign Comment: [] Latest Mendiola Fall Score: 35 Fall Risk: Medium Risk Safety Measures: Call light Within Reach, Bed Alarm , Side Rails Side Rails x2, Bed position Low and Locked. Fall Precautions: Patient Fall Education Report given to [FAHAD Bautista].
[2020-05-24 20:00] VITALS: BP 102/70
[2020-05-25] VITALS: BP 111/74
[2020-05-25 04:00] VITALS: BP 106/68
--- NOTE | 2020-05-25 05:15 | NUR ---
Pt. has severe abdominal pain complaint and was covered with prn pain meds, verbalized relief. Slept @ long intervals. Able to use bathroom @ times. Voiding freely. On continued ivf, infusing well. Calls answered promptly. Will continue with plan of care.
[2020-05-25 07:15] LABS: BASOPHILS % (AUTO) 1.2 % (0.0-2.0); EOSINOPHILS % (AUTO) 2.3 % (0.0-3.0); HEMATOCRIT 38.8 % (37.0-47.0); HEMOGLOBIN 12.8 G/DL (12.0-16.0); LYMPHOCYTES % (AUTO) 42.6 % (20.0-45.0); MEAN CORPUSCULAR VOLUME 78 FL (80-99); MONOCYTES % (AUTO) 5.2 % (1.0-10.0); NEUTROPHILS % (AUTO) 48.8 % (45.0-75.0); PLATELET COUNT 216 K/UL (150-450); RED BLOOD COUNT 4.99 M/UL (4.20-5.40); RED CELL DISTRIBUTION WIDTH 13.2 % (11.6-14.8); WHITE BLOOD COUNT 7.8 K/UL (4.8-10.8)
--- NOTE | 2020-05-25 07:22 | NUR ---
NURSE HAND-OFF: Important Events on Shift:pain mngt. Patient Status: alert and oriented Diet: Low Fiber Low Residue Pending Orders: Pending Results/Labs: Pending MD notification: Latest Vital Signs: Temperature 98.1 , Pulse 57 , B/P 106 /68 , Respiratory Rate 18 , O2 SAT 100 , Room Air, O2 Flow Rate . Vital Sign Comment: Latest Mendiola Fall Score: 35 Fall Risk: Medium Risk Safety Measures: Call light Within Reach, Bed Alarm , Side Rails Side Rails x2, Bed position Low and Locked. Fall Precautions: Patient Fall Education Report given to Anabella VÁSQUEZ
[2020-05-25 07:36] LABS: ALANINE AMINOTRANSFERASE 13 U/L (12-78); ALBUMIN 3.4 G/DL (3.4-5.0); ALKALINE PHOSPHATASE 76 U/L (46-116); ANION GAP 7 mmol/L (5-15); ASPARTATE AMINO TRANSFERASE 14 U/L (15-37); BILIRUBIN,TOTAL 0.3 MG/DL (0.2-1.0); BLOOD UREA NITROGEN 7 mg/dL (7-18); CALCIUM 8.5 MG/DL (8.5-10.1); CARBON DIOXIDE 29 MMOL/L (21-32); CHLORIDE 106 MMOL/L (98-107); POTASSIUM 3.9 MMOL/L (3.5-5.1); SODIUM 142 MMOL/L (136-145)
[2020-05-25 08:00] VITALS: BP 96/58
[2020-05-25] MEDS: Heparin 5000 units/ml inj SUBQ SCH (09:01)
[2020-05-25] MEDS: D5 1/2NS 1,000 ML IV SCH (09:01)
--- NOTE | 2020-05-25 09:24 | General Progress Note ---
Subjective Allergies: Coded Allergies: No Known Allergies (Unverified , 03/21/15) All Systems: reviewed and negative except above Subjective calm in bed Objective Last 24 Hour Vital Signs Date Time Temp Pulse Resp B/P (MAP) Pulse Ox O2 Delivery O2 Flow Rate FiO2 05/25/20 04:00 98.1 57 18 106/68 (81) 100 05/25/20 00:00 97.2 68 17 111/74 (86) 99 05/24/20 21:00 Room Air 05/24/20 20:00 97.9 59 18 102/70 (81) 100 05/24/20 16:00 97.9 60 18 94/63 (73) 100 05/24/20 12:00 98.7 53 18 99/60 (73) 97 Intake and Output 05/24/20 05/25/20 19:00 07:00 Intake Total 1175 ml 1200 ml Balance 1175 ml 1200 ml Intake Oral 600 ml 400 ml IV Total 575 ml 800 ml # Voids 3 2 Laboratory Tests 05/24/20 15:50: Urine Opiates Screen PositiveH, Urine Barbiturates Screen Negative, Phencyclidine (PCP) Screen PositiveH, Urine Amphetamines Screen Negative, Urine Benzodiazepines Screen Negative, Urine Cocaine Screen Negative, Urine Marijuana (THC) Screen Negative 05/25/20 06:30: White Blood Count 7.8, Red Blood Count 4.99, Hemoglobin 12.8, Hematocrit 38.8, Mean Corpuscular Volume 78L, Mean Corpuscular Hemoglobin 25.5L, Mean Corpuscular Hemoglobin Concent 32.9, Red Cell Distribution Width 13.2, Platelet Count 216, Mean Platelet Volume 6.2L, Neutrophils (%) (Auto) 48.8, Lymphocytes (%) (Auto) 42.6, Monocytes (%) (Auto) 5.2, Eosinophils (%) (Auto) 2.3, Basophils (%) (Auto) 1.2, Sodium Level 142, Potassium Level 3.9, Chloride Level 106, Carbon Dioxide Level 29, Anion Gap 7, Blood Urea Nitrogen 7, Creatinine 1.0, Estimat Glomerular Filtration Rate > 60, Glucose Level 91, Calcium Level 8.5, Total Bilirubin 0.3, Aspartate Amino Transf (AST/SGOT) 14L, Alanine Aminotransferase (ALT/SGPT) 13, Alkaline Phosphatase 76, Total Protein 6.7, Albumin 3.4, Globulin 3.3, Albumin/Globulin Ratio 1.0 Height (Feet): 5 Height (Inches): 8.00 Weight (Pounds): 187 General Appearance: alert EENT: normal ENT inspection Neck: normal alignment Cardiovascular: normal peripheral pulses, normal rate, regular rhythm Respiratory/Chest: chest wall non-tender, lungs clear, normal breath sounds Abdomen: normal bowel sounds, non tender, soft Extremities: normal inspection Edema: no edema noted Arm (L), no edema noted Arm (R), no edema noted Leg (L), no edema noted Leg (R), no edema noted Pedal (L), no edema noted Pedal (R), no edema noted Generalized Neurologic: responsive, motor weakness Skin: normal pigmentation, warm/dry Assessment/Plan Problem List: (1) UTI (urinary tract infection) ICD Codes: N39.0 - Urinary tract infection, site not specified SNOMED: 73100217 (2) Cholecystitis ICD Codes: K81.9 - Cholecystitis, unspecified SNOMED: 69058876 Status: stable, progressing Assessment/Plan: abx pain control gi sx f/u cbc bmp am Jose Moreno DO May 25, 2020 09:24
--- NOTE | 2020-05-25 10:23 | General Progress Note ---
Subjective ROS Limited/Unobtainable: Yes Allergies: Coded Allergies: No Known Allergies (Unverified , 03/21/15) Objective Last 24 Hour Vital Signs Date Time Temp Pulse Resp B/P (MAP) Pulse Ox O2 Delivery O2 Flow Rate FiO2 05/25/20 09:00 Room Air 05/25/20 08:00 97.2 51 18 96/58 (71) 100 05/25/20 04:00 98.1 57 18 106/68 (81) 100 05/25/20 00:00 97.2 68 17 111/74 (86) 99 05/24/20 21:00 Room Air 05/24/20 20:00 97.9 59 18 102/70 (81) 100 05/24/20 16:00 97.9 60 18 94/63 (73) 100 05/24/20 12:00 98.7 53 18 99/60 (73) 97 Intake and Output 05/24/20 05/25/20 19:00 07:00 Intake Total 1175 ml 1200 ml Balance 1175 ml 1200 ml Intake Oral 600 ml 400 ml IV Total 575 ml 800 ml # Voids 3 2 Laboratory Tests 05/24/20 15:50: Urine Opiates Screen PositiveH, Urine Barbiturates Screen Negative, Phenc yclidine (PCP) Screen PositiveH, Urine Amphetamines Screen Negative, Urine Benzodiazepines Screen Negative, Urine Cocaine Screen Negative, Urine Marijuana (THC) Screen Negative 05/25/20 06:30: White Blood Count 7.8, Red Blood Count 4.99, Hemoglobin 12.8, Hematocrit 38.8, Mean Corpuscular Volume 78L, Mean Corpuscular Hemoglobin 25.5L, Mean Corpuscular Hemoglobin Concent 32.9, Red Cell Distribution Width 13.2, Platelet Count 216, Mean Platelet Volume 6.2L, Neutrophils (%) (Auto) 48.8, Lymphocytes (%) (Auto) 42.6, Monocytes (%) (Auto) 5.2, Eosinophils (%) (Auto) 2.3, Basophils (%) (Auto) 1.2, Sodium Level 142, Potassium Level 3.9, Chloride Level 106, Carbon Dioxide Level 29, Anion Gap 7, Blood Urea Nitrogen 7, Creatinine 1.0, Estimat Glomerular Filtration Rate > 60, Glucose Level 91, Calcium Level 8.5, Total Bilirubin 0.3, Aspartate Amino Transf (AST/SGOT) 14L, Alanine Aminotransferase (ALT/SGPT) 13, Alkaline Phosphatase 76, Total Protein 6.7, Albumin 3.4, Globulin 3.3, Albumin/Globulin Ratio 1.0 Height (Feet): 5 Height (Inches): 8.00 Weight (Pounds): 187 General Appearance: alert EENT: normal ENT inspection Neck: supple Cardiovascular: normal rate Respiratory/Chest: decreased breath sounds Abdomen: normal bowel sounds, non tender, soft Extremities: non-tender Assessment/Plan Problem List: (1) Cholelithiasis ICD Codes: K80.20 - Calculus of gallbladder without cholecystitis without obstruction SNOMED: 349207456 Status: stable, progressing Assessment/Plan: no elevated LFTS no need for ERCP at this time fu surg recs advanced iet Drug screen>> positive for PCP Bridger Flores MD May 25, 2020 10:23
--- NOTE | 2020-05-25 11:27 | Discharge Instructions ---
Discharge Instructions Discharge Instructions Follow up with: Please follow up with your PCP regis to establish care / surgical referral Call MD/Return to Hospital if: pain, nausea, emesis, worsening condition Diet: regular - low fat diet Resume Normal Activity?: Yes Activity: resume normal activities, no restrictions, up ad bean For Surgical Patients May shower: Yes For Congestive Heart Failure Reminder Report to your physician any weight gain of 5 pounds or more in one week. Marlo Aguilera May 25, 2020 11:27
--- NOTE | 2020-05-25 11:58 | NUR ---
NURSE NOTES: patient endorsed wanting to go home. Primary doctor was notified and Dr Aguilera put discharged orders. Patient removed her IV on her own. She verbalized understanding of discharge instructions. She signed the belongings sheet, she was discharged with all her belongings and did not complain of pain or any discomfort.
--- NOTE | 2020-05-25 14:47 | Surgery Progress Note ---
Surgery Progress Note Subjective Symptoms: improved, pain absent, tolerating diet, voiding well, passing flatus, BM Objective Last 24 Hour Vital Signs Date Time Temp Pulse Resp B/P (MAP) Pulse Ox O2 Delivery O2 Flow Rate FiO2 05/25/20 09:00 Room Air 05/25/20 08:00 97.2 51 18 96/58 (71) 100 05/25/20 04:00 98.1 57 18 106/68 (81) 100 05/25/20 00:00 97.2 68 17 111/74 (86) 99 05/24/20 21:00 Room Air 05/24/20 20:00 97.9 59 18 102/70 (81) 100 05/24/20 16:00 97.9 60 18 94/63 (73) 100 I&O Intake and Output 05/24/20 05/25/20 19:00 07:00 Intake Total 1175 ml 1200 ml Balance 1175 ml 1200 ml Intake Oral 600 ml 400 ml IV Total 575 ml 800 ml # Voids 3 2 Cardiovascular: RSR Respiratory: clear Abdomen: soft, flat, non-tender, present bowel sounds Extremities: no edema, no tenderness, no cyanosis Laboratory Tests Test 05/24/20 15:50 05/25/20 06:30 Urine Opiates Screen Positive (NEGATIVE) H Urine Barbiturates Screen Negative (NEGATIVE) Phencyclidine (PCP) Screen Positive (NEGATIVE) H Urine Amphetamines Screen Negative (NEGATIVE) Urine Benzodiazepines Screen Negative (NEGATIVE) Urine Cocaine Screen Negative (NEGATIVE) Urine Marijuana (THC) Screen Negative (NEGATIVE) White Blood Count 7.8 K/UL (4.8-10.8) Red Blood Count 4.99 M/UL (4.20-5.40) Hemoglobin 12.8 G/DL (12.0-16.0) Hematocrit 38.8 % (37.0-47.0) Mean Corpuscular Volume 78 FL (80-99) L Mean Corpuscular Hemoglobin 25.5 PG (27.0-31.0) L Mean Corpuscular Hemoglobin Concent 32.9 G/DL (32.0-36.0) Red Cell Distribution Width 13.2 % (11.6-14.8) Platelet Count 216 K/UL (150-450) Mean Platelet Volume 6.2 FL (6.5-10.1) L Neutrophils (%) (Auto) 48.8 % (45.0-75.0) Lymphocytes (%) (Auto) 42.6 % (20.0-45.0) Monocytes (%) (Auto) 5.2 % (1.0-10.0) Eosinophils (%) (Auto) 2.3 % (0.0-3.0) Basophils (%) (Auto) 1.2 % (0.0-2.0) Sodium Level 142 MMOL/L (136-145) Potassium Level 3.9 MMOL/L (3.5-5.1) Chloride Level 106 MMOL/L (98-107) Carbon Dioxide Level 29 MMOL/L (21-32) Anion Gap 7 mmol/L (5-15) Blood Urea Nitrogen 7 mg/dL (7-18) Creatinine 1.0 MG/DL (0.55-1.30) Estimat Glomerular Filtration Rate > 60 mL/min (>60) Glucose Level 91 MG/DL (74-106) Calcium Level 8.5 MG/DL (8.5-10.1) Total Bilirubin 0.3 MG/DL (0.2-1.0) Aspartate Amino Transf (AST/SGOT) 14 U/L (15-37) L Alanine Aminotransferase (ALT/SGPT) 13 U/L (12-78) Alkaline Phosphatase 76 U/L (46-116) Total Protein 6.7 G/DL (6.4-8.2) Albumin 3.4 G/DL (3.4-5.0) Globulin 3.3 g/dL Albumin/Globulin Ratio 1.0 (1.0-2.7) Plan Problems: (1) Cholelithiasis (2) Biliary colic Assessment & Plan: 39 year old female with known history of cholelithiasis and biliary colic presents with abd pain RUQ. since admission pain improved no n/v/f/c labs normal US noted cholelithiasis but no gb thickening or pericholecystic fluid on exam abd soft nt/nd, bs+ likely episode of biliary colic discussed with patient at bedside. currently does not have pcp. recommend establish pcp with insurance. surgical outpatient referral in her network and recommend elective cholecystectomy. trial oral diet d/c planning thank you (3) Cholecystitis Assessment & Plan: CLINICAL HISTORY: Right upper quadrant abdominal pain. Abnormal LFTs. TECHNIQUE: Real-time ultrasound of the right upper quadrant with image documentation. COMPARISON: 03/21/2015. FINDINGS: Liver: No focal hepatic abnormality noted. Gallbladder: There is cholelithiasis. 1 of the gallstones is in the region of the neck of the gallbladder. The gallbladder is otherwise unremarkable. No gallbladder wall thickening. Common bile duct: The common bile duct was not visualized due to bowel gas. Pancreas: Pancreas is grossly unremarkable. Right kidney: Right kidney measures 11.5 cm in length without hydronephrosis. No stones. Aorta: Abdominal aorta is normal in caliber. IMPRESSION: 1. Cholelithiasis. There is a gallstone in the region of the neck of the gallbladder. 2. The gallbladder is otherwise unremarkable. 3. The common bile duct was not visualized. 4. If there is concern for etiology such as choledocholithiasis, MRCP study should be considered for follow-up. 5. No hydronephrosis of the right kidney. ADDENDUM - Added by Ganesh Bojorquez MD on 05/23/2020 8:42 PM (-07:00) This is a correction to the report above. Additional images were received. This study should have been labeled as ultrasound of the abdomen complete. Moreover, the common bile duct was visualized and was normal in caliber. Moreover, the left kidney and the spleen were unremarkable. (4) Insomnia (5) Thrombocytopenia (6) Anemia, chronic disease (7) Phencyclidine (PCP) use disorder, moderate Marlo Aguilera May 25, 2020 14:47
--- NOTE | 2020-05-25 17:05 | NUR ---
INSURANCE CLINICALS/REVIEW DC INSTRUCTIONS/ HP/ (05/23-05/25) FAXED TO [facility] [phone]
--- NOTE | 2020-05-26 07:32 | Discharge Summary ---
Discharge Summary Discharge Summary _ DATE OF ADMISSION: 05/23/2020 DATE OF DISCHARGE: 05/25/2020 DISCHARGED BY: Dr. Moreno REASON FOR ADMISSION: 39 years old female with past medical history of cholelithiasis, presented to ED with right sided upper quadrant abdominal pain. Pain started apparently 4 hours prior to coming to the emergency department , and was described as sharp, without radiation, located in the right upper abdomen. Patient reported that she did get biliary colic frequently , but this pain was much worse . She described pain as 10 out of 10 on a scale 1 to 10. No fever or chills. No chest pain or shortness of breath. No palpitations. Upon evaluation vital signs were stable. Laboratory work-up revealed no leukocytosis , stable hemoglobin, hematocrit and platelet count. Stable electrolytes and renal parameters. Glucose 99. Stable LFT and bilirubin. Lipase 120. Abdominal ultrasound demonstrated cholelithiasis. Gallstone in the region of the neck of the gallbladder. Gallbladder otherwise was unremarkable. Common bile duct was not visualized. No hydronephrosis. An addendum was later made by radiologist: common bile duct was visualized and was normal in caliber. Moreover, the left kidney and the spleen were unremarkable. Urinalysis revealed +2 leukocyte esterase, borderline pyuria and few bacteria. Urine toxicology screen was positive for phencyclidine and opiates. In emergency department patient was medicated for pain, received empiric antibiotic, started on IV fluids and admitted for further management. CONSULTANTS: GI specialist Dr. Flores surgery Dr. Aguilera [facility] COURSE: Patient admitted to medical surgical floor Surgeon and GI specialist seen and evaluated patient. Patient initially was kept n.p.o. Pain management was addressed. Antiemetic provided as needed. Patient received empiric antibiotic for UTI. Abdominal exam remained stable. Patient was followed-up with the labs which all remained stable . Patient remained afebrile, no leukocytosis. Per surgeon , patient likely had episode of biliary colic. Surgeon recommended to establish primary care provider , which she does not have at this time , as per her insurance with surgical outpatient referral in the network. Surgeon recommended elective cholecystectomy. Patient slowly started on diet, and diet was advanced addressed as tolerated. LFT remained stable. Per GI specialist, no need for ERCP at this time. Pain was controlled. Patient was able to tolerate diet. Patient counseled on abstinence from illicit street drugs. Patient clinically stabilized and was ready for discharge FINAL DIAGNOSES: Cholelithiasis Biliary colic Possible cholecystitis UTI Phencyclidine use disorder Abdominal pain DISCHARGE MEDICATIONS: See Medication Reconciliation list. DISCHARGE INSTRUCTIONS: Patient was discharged home. Patient advised to establish a primary care provider as per her insurance. Patient was advised to see a surgeon in the network for elective cholecystectomy I have been assigned to dictate discharge summary for this account. I was not involved in the patient's management. Zakia Elise NP May 26, 2020 07:32
--- NOTE | 2020-05-26 14:07 | NUR ---
INSURANCE DC SUMMARY FAXED TO [facility] [phone]
== END 2020-05-25 11:48 | disposition home or self-care (01) ==
LOC: EMR 18:05 → OBSVTOIN 20:59 → 4E 20:59 → EDBEDREQ 21:05
DX: K80.19 Calculus of gallbladder with other cholecystitis with obstruction (principal); N39.0 Urinary tract infection, site not specified; D63.8 Anemia in other chronic diseases classified elsewhere; D69.6 Thrombocytopenia, unspecified; F16.20 Hallucinogen dependence, uncomplicated; F16.10 Hallucinogen abuse, uncomplicated; G47.00 Insomnia, unspecified
CPT/HCPCS: 36415; 76700; 80048; 80053; 80307; 81003; 83690; 85025; 87040; 96361; 96365; 96375; 99285